=== PATIENT | male | born 1985 | race Caucasian/White ===

== ENCOUNTER 2020-04-04 09:26 | Emergency (ER) | payer BC ==
[~2020-04-04] VITALS: Ht 182.9 cm; Wt 103.0 kg
[2020-04-04 09:47] VITALS: BP 177/101
[2020-04-04 10:25] LABS: BARBITURATES NEG (NEG); BENZODIAZEPINES NEG (NEG); CANNABINOIDS NEG (NEG); COCAINE NEG (NEG); METHADONE NEG (NEG); OPIATES NEG (NEG); PHENCYCLIDINE NEG (NEG)
[2020-04-04 10:26] LABS: AMPHETAMINE/METHAMPHETAMINE NEG (NEG)
[2020-04-04 10:33] LABS: BILIRUBIN,URINE NEGATIVE (NEG); CLARITY,URINE CLEAR; COLOR,URINE YELLOW; NITRITE,URINE NEGATIVE (NEG); PH,URINE 8.5 (<5.0-8.0); PROTEIN,URINE NEGATIVE (NEG-TRACE); UROBILINOGEN,URINE 0.2 mg/dL (0.2 mg/dL)
[2020-04-04 10:38] LABS: BASO % 1 % (0-3); EOS % 1 % (0-3); HEMATOCRIT 40.3 % (39.0-53.0); HEMOGLOBIN 13.7 g/dL (13.0-17.5); LYMPH % 20 % (24-48); MEAN CORPUSCULAR HEMOGLOBIN 31 pg (25-35); MEAN CORPUSCULAR HGB CONC 34 g/dL (31-37); MEAN CORPUSCULAR VOLUME 92 fL (79-100); MONO # 0.5 x10^3/uL (0.0-1.1); MONO % 10 % (0-9); NEUT # 3.3 x10^3/uL (1.8-7.7); NEUT % 68 % (31-73); PLATELET COUNT 181 x10^3/uL (140-400); RED BLOOD COUNT 4.38 x10^6/uL (4.30-5.70); RED CELL DISTRIBUTION WIDTH 13.2 % (11.5-14.5); WHITE BLOOD COUNT 4.8 x10^3/uL (4.0-11.0)
[2020-04-04 10:47] LABS: BACTERIA,URINE 0 /HPF (0-FEW); RBC,URINE RARE /HPF (0-2); WBC,URINE RARE /HPF (0-4)
[2020-04-04 10:55] LABS: CREATININE 0.7 mg/dL (0.7-1.3); GFR 130.7; POTASSIUM 4.2 mmol/L (3.5-5.1)
[2020-04-04 11:01] LABS: ALBUMIN 3.5 g/dL (3.4-5.0); PHOSPHORUS 2.3 mg/dL (2.6-4.7); TOTAL BILIRUBIN 0.4 mg/dL (0.2-1.0); TOTAL PROTEIN 6.9 g/dL (6.4-8.2)
--- NOTE | 2020-04-04 11:46 | RAD ---
EXAM: Chest, 2 views. HISTORY: Short of breath. COMPARISON: None. FINDINGS: 2 views of the chest are obtained. There is no infiltrate, protrusion or pneumothorax. Ther e is a prominent cardiac silhouette. IMPRESSION: No acute pulmonary finding. Electronically signed by: Nena Rae MD (04/04/2020 11:44 AM) [id number]
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
[2020-04-04] MEDS ORDERED: FURO-69 PO (13:20)
[2020-04-04] MEDS ORDERED: FUROSEMIDE 20 MG/2 ML VIAL. IVP ONE (13:30)
--- NOTE | 2020-04-05 05:17 | EKG ---
[facility] [address] [place] [address] Test Date: 2020-04-04 Test Time: 09:51:53 Pat Name: ENA VARELA Department: Room: Gender: M Visor Installer: : [id number] Requested By: POOL HUMPHRIES Order Number: [id number] Reading MD: Measurements Intervals [place] Rate: 87 P: 39 MT: 148 QRS: 59 QRSD: 78 T: 30 QT: 394 QTc: 475 Interpretive Statements SINUS RHYTHM PROLONGED QT NO SPECIFIC ECG ABNORMALITIES RI6.01 No previous ECG available for comparison
== END 2020-04-04 14:08 | disposition home or self-care (01) ==
LOC: ER 09:26
DX: F41.9 Anxiety disorder, unspecified (principal); R79.89 Other specified abnormal findings of blood chemistry; R22.33 Localized swelling, mass and lump, upper limb, bilateral; R22.43 Localized swelling, mass and lump, lower limb, bilateral
CPT/HCPCS: 36415; 71046; 80053; 80307; 81001; 82553; 83735; 83880; 84100; 84484; 85025; 93005; 96374; 96375; 99285; G0480; J1940; J2060; 99284-25